=== PATIENT | female | born 1955 | race Caucasian/White ===

== ENCOUNTER 2017-12-02 14:59 | Outpatient (CLI) | payer OTHER ==
[~2017-12-02] VITALS: Ht 160 cm; Wt 81.6 kg
[~2017-12-02 14:59] MED LIST: BUPR150T7 PO
== END 2017-12-02 15:01 | disposition home or self-care (01) ==
LOC: PREOP 14:59
PROVIDERS: ATTEND Surgery
DX: Z01.818 Encounter for other preprocedural examination (principal)

== ENCOUNTER 2019-06-22 15:19 | Outpatient (CLI) | payer OTHER ==
[~2019-06-22] VITALS: Ht 160 cm; Wt 77.3 kg
[~2019-06-22 15:19] MED LIST changes: +DULO30CA3 PO
== END 2019-06-22 15:30 | disposition home or self-care (01) ==
LOC: PREOP 15:19
PROVIDERS: ATTEND Specialist
DX: Z01.818 Encounter for other preprocedural examination (principal)

== ENCOUNTER 2019-06-24 05:52 | Day surgery (SDC) | payer OTHER ==
[2019-06-24] VITALS (8 sets, daily range): BP systolic 88–122; BP diastolic 56–99
[~2019-06-24] VITALS: Ht 152 cm; Wt 77.3 kg
[2019-06-24] MEDS ORDERED: POVIDONE (BETADINE) OPHTH SOLN 5% 30 ML OP ONE (06:15)
[2019-06-24] MEDS ORDERED: TIMOLOL MALEATE 0.5% 5 ML (TIMOPTIC) BTL OU PRN (06:15)
[2019-06-24] MEDS ORDERED: MOXIFLOXACIN OPHTH SOLN 5 MG/ML 0.3 ML SYRINGE OP ONE (06:15)
[2019-06-24] MEDS ORDERED: LIDOCAINE PF 1% 2 ML VIAL IR PRN (06:15)
[2019-06-24] MEDS: TETRACAINE 0.5% OPHTH SOLN 4 ML BTL (SINGLE DOSE ONLY) OU PRN ×4 (06:20→06:54)
[2019-06-24] MEDS: PHENYLEPHRINE 10% OPHTH (NEO-SYN) 5 ML BTL OU SCH ×3 (06:32→06:54)
[2019-06-24] MEDS: CYCLOPENTOLATE 1% (CYCLOGYL) 2 ML DROPS OP SCH ×3 (06:33→06:54)
[2019-06-24] MEDS ORDERED: MIDAZOLAM 2 MG/2 ML (VERSED) VIAL ONE ×2 (06:46→07:08)
--- NOTE | 2019-06-24 07:28 | Ophthalmologist Pre-Op Note ---
Pre-Operative Progress Note H&P Reviewed The H&P was reviewed, patient examined and no changes noted. Date H&P Reviewed: Jun 24, 2019 Time H&P Reviewed: 07:28 Pre-Op Dx Cataract, Right Eye JEROD SILVA MD Jun 24, 2019 07:28
[2019-06-24] MEDS ORDERED: acetaZOLAMIDE ER 500 MG CAP (DIAMOX SEQUELS) PO ONE (07:30)
--- NOTE | 2019-06-24 07:55 | Ophthalmology Operative Report ---
Cataract removal/placement IOL PREOPERATIVE DIAGNOSIS: Cataract Right Eye POSTOPERATIVE DIAGNOSIS: Cataract Right Eye PROCEDURE: Cataract removal and placement of posterior chamber implant, right eye SURGEON: Abimael Silva ANESTHESIA: General COMPLICATIONS: None ESTIMATED BLOOD LOSS: Minimal DESCRIPTION OF PROCEDURE: After proper informed consent was obtained, the patient, a 63 female, was taken to the Operating Room and the right eye was anesthetized with tetracaine. The right eye was then prepped and draped in the usual manner. A wire lid speculum was placed. A paracentesis was made at the left hand position. Preservative free lidocaine was injected into the anterior chamber followed by viscoelastic. A clear corneal incision was made in the temporal position. A capsulorrhexis was preformed and the central nuclear and cortical material were removed. The posterior capsule was polished and Brendan 21.5 AU00T0 IOL was placed into the capsular bag. The residual viscoelastic was aspirated and balanced saline solution was injected into the anterior chamber. Moxifloxacin was injected into the anterior chamber. The wound was checked and found to be water tight. The patient tolerated the procedure well without complications. ABIMAEL SILVA MD Jun 24, 2019 07:55
[2019-06-24] MEDS ORDERED: SEVOFLURANE (ULTANE) 15 ML INHAL SOLN ONE (08:01)
[2019-06-24] MEDS ORDERED: proPOfol 200 MG/20 ML (DIPRIVAN) VIAL IV ONE (08:01)
== END 2019-06-24 09:15 | disposition home or self-care (01) ==
LOC: SDC 05:52
PROVIDERS: ATTEND Specialist
DX: H25.11 Age-related nuclear cataract, right eye (principal); F41.9 Anxiety disorder, unspecified; F32.9 Major depressive disorder, single episode, unspecified; F43.10 Post-traumatic stress disorder, unspecified; Z97.4 Presence of external hearing-aid; Z79.899 Other long term (current) drug therapy

== ENCOUNTER 2019-11-01 05:41 | Outpatient (RCR) | payer OTHER ==
[~2019-11-01] VITALS: Ht 160 cm; Wt 77.3 kg
== END 2019-11-01 10:56 | disposition home or self-care (01) ==
LOC: PREOP 05:41
PROVIDERS: ATTEND Specialist
DX: Z01.812 Encounter for preprocedural laboratory examination (principal); H26.9 Unspecified cataract; Z20.828 Contact with and (suspected) exposure to other viral communicable diseases
CPT/HCPCS: 87635

== ENCOUNTER 2019-11-04 06:41 | Day surgery (SDC) | payer OTHER ==
[2019-11-04] VITALS (9 sets, daily range): BP systolic 107–141; BP diastolic 62–76
[~2019-11-04] VITALS: Wt 77.3 kg
[2019-11-04] MEDS ORDERED: FAMOTIDINE 20MG/2ML IV (PEPCID) ONE (07:14)
[2019-11-04] MEDS ORDERED: METOCLOPRAMIDE INJ 10 MG/2 ML (REGLAN) ONE (07:14)
[2019-11-04] MEDS ORDERED: FAMOTIDINE 20MG/2ML IV (PEPCID) IV ONE (07:15)
[2019-11-04] MEDS ORDERED: METOCLOPRAMIDE INJ 10 MG/2 ML (REGLAN) IV ONE (07:15)
[2019-11-04] MEDS ORDERED: CITRIC ACID/SOB CIT (BICITRA) 30 ML UDC PO ONE (07:15)
--- NOTE | 2019-11-04 07:28 | NUR ---
PT TO HAVE GENERAL ANESTHESIA BUT DRANK COFFEE WITH CREAMER. PT SENT HOME AND TO RETURN AT 11:30 FOR PROCEDURE. IV WRAPPED WITH COBAN AND INSTRUCTIONS GIVEN TO NOT EAT OR DRINK ANYTHING UNTIL AFTER PROCEDURE. PT AND VERBALIZED UNDERSTANDING.
[2019-11-04] MEDS ORDERED: POVIDONE (BETADINE) OPHTH SOLN 5% 30 ML OP ONE (07:30)
[2019-11-04] MEDS ORDERED: MOXIFLOXACIN OPHTH SOLN 5 MG/ML 0.3 ML SYRINGE OP ONE (07:30)
[2019-11-04] MEDS ORDERED: LIDOCAINE PF 1% 2 ML VIAL IR PRN (07:30)
[2019-11-04] MEDS ORDERED: TIMOLOL MALEATE 0.5% 5 ML (TIMOPTIC) BTL OU PRN (07:30)
[2019-11-04] MEDS ORDERED: acetaZOLAMIDE ER 500 MG CAP (DIAMOX SEQUELS) PO ONE (08:30)
--- OUTSIDE RECORDS SUMMARY | 2019-11-04 09:11 | XMS REPORT | Continuity of Care Document ---
Author Organization Unknown Address Unknown Phone Unavailable Allergies Active Description Code Type Severity Reaction Onset Reported/Identified Relationship to Patient Clinical Status Yes NO KNOWN DRUG ALLERGIES UNKNOWN NO KNOWN DRUG ALLERG Yes NO KNOWN DRUG ALLERGIES UNKNOWN UNKNOWN Yes No Known Drug Allergies [id number] Drug Allergy Unknown N/A 12/02/2017 Medications There is no data. 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 10/08/2017 A F39 UNSPEC IFIED MOOD [AFFECTIVE] DISORDER 10/08/2017 W F90.9 ATTE NTION-DEFICIT HYPERACTIVITY DISORDER, UNSPECIFIED TYPE 10/08/2017 W V12.72 PER ROMULO HISTORY OF COLONIC POLYPS 10/08/2017 W Z86.010 PE RSONAL HISTORY OF COLONIC POLYPS 12/02/2017 Ot Z01.818 EN COUNTER FOR OTHER PREPROCEDURAL EXAMIN 12/07/2017 FUNMI GUPTA DO Ot F98.8 OTH BEHAV/EMOTN DISORD W ONSET USLY OCCU 12/07/2017 FUNMI GUPTA DO Ot K51.4 0 INFLAMMATORY POLYPS OF COLON WITHOUT COM 12/07/2017 FUNMI GUPTA DO Ot K57.3 0 DVRTCLOS OF LG INT W/O PERFORATION OR AB 12/07/2017 FUNMI GUPTA DO Ot K64.8 OTHER HEMORRHOIDS 12/07/2017 FUNMI GUPTA DO Ot M79.7 FIBROMYALGIA 12/07/2017 FUNMI GUPTA DO Ot Z12.1 1 ENCOUNTER FOR SCREENING FOR MALIGNANT NE 12/07/2017 FUNMI GUPTA DO Ot Z79.8 99 OTHER SNF (CURRENT) DRUG THERAPY 12/08/2017 Ot Z01.818 EN COUNTER FOR OTHER PREPROCEDURAL EXAMIN 12/18/2017 FUNMI GUPTA DO Ot F98.8 OTH BEHAV/EMOTN DISORD W ONSET USLY OCCU 12/18/2017 FUNMI GUPTA DO Ot K51.4 0 INFLAMMATORY POLYPS OF COLON WITHOUT COM 12/18/2017 FUNMI GUPTA DO Ot K57.3 0 DVRTCLOS OF LG INT W/O PERFORATION OR AB 12/18/2017 FUNMI GUPTA DO Ot K64.8 OTHER HEMORRHOIDS 12/18/2017 FUNMI GUPTA DO Ot M79.7 FIBROMYALGIA 12/18/2017 FUNMI GUPTA DO Ot Z12.1 1 ENCOUNTER FOR SCREENING FOR MALIGNANT NE 12/18/2017 FUNMI GUPTA DO Ot Z79.8 99 OTHER SNF (CURRENT) DRUG THERAPY 06/22/2019 JEROD SILVA MD Ot Z01.818 ENCOUNTER FOR OTHER PREPROCEDURAL EXAMIN 06/22/2019 JEROD SILVA MD Ot Z01.818 ENCOUNTER FOR OTHER PREPROCEDURAL EXAMIN 06/22/2019 JEROD SILVA MD Ot Z01.818 ENCOUNTER FOR OTHER PREPROCEDURAL EXAMIN 06/24/2019 JEROD SILVA MD Ot F32 .9 MAJOR DEPRESSIVE DISORDER, SINGLE EPISOD 06/24/2019 JEROD SILVA MD Ot F41 .9 ANXIETY DISORDER, UNSPECIFIED 06/24/2019 JEROD SILVA MD Ot F43.10 POST-TRAUMATIC STRESS DISORDER, UNSPECIF 06/24/2019 JEROD SILVA MD Ot H25.11 AGE-RELATED NUCLEAR CATARACT, RIGHT EYE 06/24/2019 JEROD SILVA MD Ot Z79.899 OTHER SNF (CURRENT) DRUG THERAPY 06/24/2019 JEROD SILVA MD Ot Z97 .4 PRESENCE OF EXTERNAL HEARING-AID 06/28/2019 JEROD ISLVA MD Ot F32 .9 MAJOR DEPRESSIVE DISORDER, SINGLE EPISOD 06/28/2019 JEROD SILVA MD Ot F41 .9 ANXIETY DISORDER, UNSPECIFIED 06/28/2019 JEROD SILVA MD Ot F43.10 POST-TRAUMATIC STRESS DISORDER, UNSPECIF 06/28/2019 JEROD SILVA MD Ot H25.11 AGE-RELATED NUCLEAR CATARACT, RIGHT EYE 06/28/2019 JEROD SILVA MD Ot Z79.899 OTHER SNF (CURRENT) DRUG THERAPY 06/28/2019 JEROD SILVA MD Ot Z97 .4 PRESENCE OF EXTERNAL HEARING-AID Procedures There is no data. Results There is no data. Encounters ACCT No. Visit Date/Time Discharge Status Pt. Type Provider Facility Loc./Unit Complaint [id number] 10/26/2017 07:49:00 10/26/2017 23:59: 00 DIS Outpatient UNLISTED, UNLISTED [id number] 10/08/2017 10:15:00 Document Registration [id number] 11/01/2019 05:41:00 10:56:00 DIS Outpatient JEROD SILVA MD Via [facility] PREOP CATARACT LEFT EYE [id number] 07/08/2019 08:00:00 23:59:59 CLS Preadmit JEROD SILVA MD Via [facility] CATARACT LEFT EYE [id number] 06/24/2019 05:52:00 09:15:00 DIS Outpatient JEROD SILVA MD [facility] SDC CATARACT RIGHT EYE [id number] 06/22/2019 15:19:00 020 15:30:00 DIS Outpatient JEROD SILVA MD [facility] PREOP CATARACT RIGHT EYE [id number] 12/07/2017 12:28:00 018 15:10:00 DIS Outpatient FUNMI GUPTA DO [facility] ENDO SCREENING COLONOSCOPY [id number] 12/02/2017 14:59:00 Document Registration
[2019-11-04] MEDS: TETRACAINE 0.5% OPHTH SOLN 4 ML BTL (SINGLE DOSE ONLY) OU PRN ×3 (11:28→11:41)
[2019-11-04] MEDS ORDERED: CITRIC ACID/SOB CIT (BICITRA) 30 ML UDC ONE (11:36)
[2019-11-04] MEDS: CYCLOPENTOLATE 1% (CYCLOGYL) 2 ML DROPS OP SCH ×2 (11:36→11:41)
[2019-11-04] MEDS: PHENYLEPHRINE 10% OPHTH (NEO-SYN) 5 ML BTL OU SCH ×2 (11:36→11:41)
--- NOTE | 2019-11-04 11:55 | Ophthalmologist Pre-Op Note ---
Pre-Operative Progress Note H&P Reviewed The H&P was reviewed, patient examined and no changes noted. Date H&P Reviewed: Nov 04, 2019 Time H&P Reviewed: 11:55 Pre-Op Dx Cataract, Left Eye JEROD SILVA MD Nov 04, 2019 11:55
[2019-11-04] MEDS ORDERED: ONDANSETRON 4 MG/2 ML (SDV) Z0FRAN ONE (12:20)
[2019-11-04] MEDS ORDERED: SEVOFLURANE (ULTANE) 15 ML INHAL SOLN ONE (12:20)
[2019-11-04] MEDS ORDERED: DEXAMETHASONE 10 MG/ML (DECADRON) 1 ML VIAL ONE (12:20)
--- NOTE | 2019-11-04 12:29 | Ophthalmology Operative Report ---
Cataract removal/placement IOL PREOPERATIVE DIAGNOSIS: Cataract Left Eye POSTOPERATIVE DIAGNOSIS: Cataract Left Eye PROCEDURE: Cataract removal and placement of posterior chamber implant, left eye SURGEON: Abimael Silva ANESTHESIA: General COMPLICATIONS: None ESTIMATED BLOOD LOSS: Minimal DESCRIPTION OF PROCEDURE: After proper informed consent was obtained, the patient, a 64 female, was taken to the Operating Room and the left eye was anesthetized with tetracaine. The left eye was then prepped and draped in the usual manner. A wire lid speculum was placed. A paracentesis was made at the left hand position. Preservative free lidocaine was injected into the anterior chamber followed by viscoelastic. A clear corneal incision was made in the temporal position. A capsulorrhexis was preformed and the central nuclear and cortical material were removed. The posterior capsule was polished and an Brendan 21.5 AU00T0 was placed into the capsular bag. The residual viscoelastic was aspirated and balanced saline solution was injected into the anterior chamber. Moxifloxacin was injected into the anterior chamber. The wound was checked and found to be water tight. The patient tolerated the procedure well without complications. ABIMAEL SILVA MD Nov 04, 2019 12:29
== END 2019-11-04 14:00 | disposition home or self-care (01) ==
LOC: SDC 06:41
PROVIDERS: ATTEND Specialist
DX: H25.12 Age-related nuclear cataract, left eye (principal); M06.9 Rheumatoid arthritis, unspecified; F32.9 Major depressive disorder, single episode, unspecified; F41.9 Anxiety disorder, unspecified; F43.10 Post-traumatic stress disorder, unspecified; M19.90 Unspecified osteoarthritis, unspecified site; Z79.899 Other long term (current) drug therapy
CPT/HCPCS: 66984; V2632